=== PATIENT | female | born 1980 | race African-American/Black ===

== ENCOUNTER 2018-06-27 15:28 | Emergency (ER) | payer SELFPAY, MEDICAID | END 2018-06-27 16:23 | disposition home or self-care (01) | LOC: FTE 15:28 | DX: S61.012A Laceration without foreign body of left thumb without damage to nail, initial encounter (principal); W26.8XXA Contact with other sharp object(s), not elsewhere classified, initial encounter; Y92.9 Unspecified place or not applicable | CPT/HCPCS: 99282 ==